=== PATIENT | female | born 1990 | race Caucasian/White ===

== ENCOUNTER 2017-04-29 17:05 | Inpatient (IN) | payer OTHER ==
[~2017-04-29] VITALS: Ht 157.5 cm; Wt 48.8 kg
--- NOTE | 2017-04-29 19:19 | RADRPT ---
PROCEDURE: XR Knee. CLINICAL INDICATION: Pain and swelling without trauma TECHNIQUE: Three views of the right knee are available for review. COMPARISON: None available FINDINGS: There is no acute fracture or dislocation. The joint spaces are maintained. A [id number]-[id number]-oyoca darcy int effusion is present. The soft tissues are unremarkable. RPTAT: ZZ IMPRESSION: Moderate to large joint effusion without a discrete fracture. The differential considerations includ e inflammatory arthropathy or infection and less likely internal derangement if there is no history of trauma or injury. A follow-up MRI is recommended for additional evaluation. .Lupe Ramirez MD, MD Date Time Electronically viewed and signed by .Lupe Ramirez MD, MD on 04/29/2017 19:19 .T/
[2017-04-29] MEDS ORDERED: LIDOCAINE 1%/EPI 30 ML INJ INJ STA (19:21)
[2017-04-29 19:28] LABS: BASOPHILS % 0.5 % (0.0-2.0); EOSINOPHILS % 0.5 % (0.0-7.0); HEMATOCRIT 44.5 % (37.0-47.0); HEMOGLOBIN 14.8 g/dl (12.0-16.0); LYMPHOCYTES # 2.3 10^3/ul (0.8-2.9); LYMPHOCYTES % 30.3 % (15.0-51.0); MEAN CORPUSCULAR HEMOGLOBIN 29.4 pg (29.0-33.0); MEAN CORPUSCULAR HGB CONC 33.3 g/dl (32.0-37.0); MEAN CORPUSCULAR VOLUME 88.5 fl (82.0-101.0); MONOCYTE # 0.7 10^3/ul (0.3-0.9); MONOCYTES % 9.3 % (0.0-11.0); NEUTROPHIL # 4.4 10^3/ul (1.6-7.5); NEUTROPHILS % 59.3 % (39.0-77.0); PLATELET COUNT 351 10^3/UL (140-415); RED BLOOD COUNT 5.03 10^6/ul (4.20-5.40); RED CELL DISTRIBUTION WIDTH 13.7 % (11.5-14.5); WHITE BLOOD COUNT 7.5 10^3/ul (4.8-10.8)
[2017-04-29 19:55] LABS: ALBUMIN 4.9 g/dl (3.3-4.9); ALBUMIN/GLOBULIN RATIO 1.19; BILIRUBIN,INDIRECT 0.5 mg/dl (0-1.1); BILIRUBIN,TOTAL 0.5 mg/dl (0.2-1.3); CALCIUM 9.7 mg/dl (8.4-10.2); CREATININE 0.61 mg/dl (0.44-1.00); POTASSIUM 3.8 mmol/L (3.5-5.1)
[2017-04-29] MEDS ORDERED: morphine 4 MG/ML VIAL IV STA (19:56)
[2017-04-29] MEDS ORDERED: ONDANSETRON 4 MG INJ IV STA (19:56)
[2017-04-29 20:23] LABS: SYN FLD CLARITY SLIGHTLY CLOUDY; SYN FLD COLOR ORANGE; SYN FLD CRYSTALS NO CRYSTALS SEEN (None seen); SYN FLD SOURCE RIGHT KNEE
[2017-04-29 20:34] LABS: SYN FLD PMN % 33.2 % (0.0-25.0); SYN FLD WBC 5675 /cmm (0-150)
[2017-04-29 20:43] LABS: SYN FLD MN % 66.8 &
[2017-04-29] MEDS ORDERED: VANCOMYCIN 1 GM (PMX) 250 ML IVPB STA (20:58)
[2017-04-29] MEDS ORDERED: CEFTRIAXONE 1 GM/50 ML (PMX) 50 ML IVPB STA (20:58)
--- NOTE | 2017-04-29 21:54 | ERD ---
ER Documentation Chief Complaint Chief Complaint r. knee pain denies trauma HPI 26 year old female presents to the emergency department complaining of moderate to severe right knee pain and swelling that is worsening in one week. Patient denies trauma, fevers. She denies taking any medications ROS All systems reviewed and are negative except as per history of present illness. Allergies Allergies: Coded Allergies: No Known Allergy (Unverified , 02/17/16) PMhx/Soc Medical and Surgical Hx: pt denies Medical Hx, pt denies Surgical Hx Hx Alcohol Use: No Hx Substance Use: No Hx Tobacco Use: No Smoking Status: Never smoker Physical Exam Vitals Vital Signs Date Time Temp Pulse Resp B/P Pulse Ox O2 Delivery O2 Flow Rate FiO2 04/29/17 17:19 98.0 102 20 138/92 97 Physical Exam Const: WDWN no acute distress Head: Atraumatic Eyes: Normal Conjunctiva ENT: Normal External Ears, Nose and Mouth. Neck: Full range of motion..~ No meningismus. Resp: Clear to auscultation bilaterally Cardio: Regular rate and rhythm, no murmurs Abd: Soft, non tender, non distended. Normal bowel sounds Skin: No petechiae or rashes Back: No midline or flank tenderness Ext: TTP right knee. Moderate swelling. restricted active ROM, full passive ROM Neur: Awake and alert Psych: Normal Mood and Affect Result Diagram: 04/29/17191904/29/171920 Results 24 hrs Laboratory Tests Test 04/29/17 19:15 04/29/17 19:20 04/29/17 19:21 Synovial Fluid Source RIGHT KNEE Synovial Fluid Color ORANGE Synovial Fluid Appearance SLIGHTLY CLOUDY Synovial Fluid Volume 22.0mL Synovial Fluid WBC 5675/cmm Synovial Fluid Polynuclear WBCs % 33.2% Synovial Fluid Mononuclear WBCs % 66.8& Synovial Fluid Crystals NO CRYSTALS SEEN White Blood Count 7.510^3/ul Red Blood Count 5.0310^6/ul Hemoglobin 14.8g/dl Hematocrit 44.5% Mean Corpuscular Volume 88.5fl Mean Corpuscular Hemoglobin 29.4pg Mean Corpuscular Hemoglobin Concent 33.3g/dl Red Cell Distribution Width 13.7% Platelet Count 26483^3/UL Mean Platelet Volume 10.0fl Neutrophils % 59.3% Lymphocytes % 30.3% Monocytes % 9.3% Eosinophils % 0.5% Basophils % 0.5% Nucleated Red Blood Cells % 0.0/100WBC Neutrophils # 4.410^3/ul Lymphocytes # 2.310^3/ul Monocytes # 0.710^3/ul Eosinophils # 0.010^3/ul Basophils # 0.010^3/ul Nucleated Red Blood Cells # 0.010^3/ul Erythrocyte Sedimentation Rate 10mm/Hr Sodium Level 140mmol/L Potassium Level 3.8mmol/L Chloride Level 102mmol/L Carbon Dioxide Level 24mmol/L Anion Gap 18 Blood Urea Nitrogen 5mg/dl Creatinine 0.61mg/dl Glucose Level 106mg/dl Calcium Level 9.7mg/dl Total Bilirubin 0.5mg/dl Direct Bilirubin 0.00mg/dl Indirect Bilirubin 0.5mg/dl Aspartate Amino Transf (AST/SGOT) 31IU/L Alanine Aminotransferase (ALT/SGPT) 28IU/L Alkaline Phosphatase 89IU/L C-Reactive Protein < 0.5mg/dl Total Protein 9.0g/dl Albumin 4.9g/dl Globulin 4.10g/dl Albumin/Globulin Ratio 1.19 Current Medications Medications (Trade) Dose Ordered Sig/Kayla Route PRN Reason Start Time Stop Time Status Last Admin Dose Admin Lidocaine/ Epinephrine (Xylocaine 1%/ Epi (Pf)) 30 ml ONCE STAT INJ 04/29/17 19:21 04/29/17 19:22 DC Morphine Sulfate (morphine) 4 mg ONCE STAT IV 04/29/17 19:56 04/29/17 19:57 DC 04/29/17 20:24 Ondansetron HCl 4 mg 4 mg ONCE STAT IV 04/29/17 19:56 04/29/17 19:57 DC 04/29/17 20:24 Vancomycin HCl 250 ml @ 125 mls/hr ONCE STAT IVPB 04/29/17 20:58 04/29/17 22:57 04/29/17 21:16 Ceftriaxone Sodium (Rocephin) 50 ml @ 100 mls/hr ONCE STAT IVPB 04/29/17 20:58 04/29/17 21:27 DC 04/29/17 21:05 Procedures/MDM 26-year-old female presents to the ED with atruamatic right knee pain and swelling, septic arthritis until proven otherwise. Patient will be admitted to med surg for further evaluation and management. I have consulted supervising physician who has consulted ortho who suggested admission. Hospitalist who accepted admission. Patient is well-appearing, afebrile and non-toxic. She is stable to be transferred. In the ED, Lab work was drawn. CBC did not show any evidence of leukocytosis or anemia. CMP did not show any evidence of renal, liver, or electrolyte abnormalities. CRP and ESR normal Joint aspiration was done, WBC 5675. Gram stain sent out XR right knee: Moderate to large joint effusion without a discrete fracture. The differential considerations include inflammatory arthropathy or infection and less likely internal derangement if there is no history of trauma or injury. A follow-up MRI is recommended for additional evaluation. Patient was given Toradol, morphine for pain. Departure Diagnosis: Primary Impression: Right knee pain Condition: OSIEL Lunsford PA-C Apr 29, 2017 21:53
[2017-04-30] MEDS ORDERED: ONDANSETRON 4 MG INJ IV PRN ×2 (00:30→04:00)
[2017-04-30] MEDS ORDERED: ACETAMINOPHEN 325 MG TAB PO PRN ×2 (00:30→04:00)
[2017-04-30 00:31] VITALS: TEMP 98
[2017-04-30 03:02] VITALS: BP 121/83; PULSE 74; RESP 17
[2017-04-30 03:10] VITALS: BP 128/83; RESP 16
[2017-04-30] MEDS ORDERED: VANCOMYCIN IV PER PHARMACY XX SCH (04:00)
[2017-04-30] MEDS ORDERED: morphine 4 MG/ML VIAL IV PRN (04:00)
[2017-04-30] MEDS: VANCOMYCIN 750 MG in DEXTROSE 5% 150 ML IVPB SCH ×2 (05:09→12:24)
[2017-04-30 07:47] VITALS: BP 111/64; RESP 16
[2017-04-30] MEDS: ENOXAPARIN 40 MG/0.4 ML SYG SC SCH (08:57)
[2017-04-30] MEDS ORDERED: CEFEPIME 1GM/50 ML (PMX) 50 ML IVPB SCH (09:00)
[2017-04-30 14:08] VITALS: BP 118/58; RESP 18
[2017-04-30] MEDS: CEFEPIME 1GM/50 ML (PMX) 50 ML IVPB SCH (15:04)
[2017-04-30 20:00] VITALS: BP 124/79; RESP 20
[2017-04-30] MEDS: VANCOMYCIN 1 GM in NS 250 ML IVPB SCH (21:10)
--- NOTE | 2017-04-30 23:51 | HP ---
Date/Time of Note Date/Time of Note DATE: 04/30/17 TIME: 23:51 Assessment/Plan VTE Prophylaxis VTE Prophylaxis Intervention: LMWH Lines/Catheters IV Catheter Type (from Nrsg): Saline Lock Assessment/Plan Assessment/Plan ASSESSMENT 26 yo female with hx of arthritis who presents to ER c/o right knee swelling and tenderness likely 2/2 inflammatory arthropathy or infection PLAN IV abx NSAIDs Need arthrocentesis. Currently awaiting Ortho eval pain mgmt HPI/ROS Admit Date/Time Admit Date/Time Apr 30, 2017 at 00:17 Hx of Present Illness This is a 26 yo female with hx of arthritis who presents to ER c/o right knee swelling and tenderness. Symptom has been progressively getting worse for last few days. Denied trauma to knee, fever/chills, N/V, CP, SOB. Right knee xray showed moderate to large joint effusion without a discrete fracture. No fever and WBC WNL. PMH/Family/Social Social History Smoking Status: Never smoker Exam/Review of Systems Vital Signs Vitals Vital Signs Date Time Temp Pulse Resp B/P Pulse Ox O2 Delivery O2 Flow Rate FiO2 04/30/17 20:00 97.7 91 20 124/79 97 04/30/17 03:02 Room Air Intake and Output 04/29/17 04/29/17 04/30/17 15:00 23:00 07:00 Intake Total 500 ml Balance 500 ml Exam Constitutional: alert, oriented Head: atraumatic, normocephalic Eyes: EOMI, PERRL Respiratory: clear to auscultation, normal air movement Cardiovascular: nl pulses, regular rate and rhythm Gastrointestinal: non-tender, soft Musculoskeletal: other (right knee swelling and tenderness) Labs Result Diagram: 04/29/17191904/29/171920 Medications Medications Current Medications Acetaminophen (Tylenol Tab) 650 mg Q6H PRN PO PAIN AND OR ELEVATED TEMP; Start 04/30/17 at 04:00 Morphine Sulfate (morphine) 4 mg Q4H PRN IV severe pain Last administered on 21:13; Admin Dose 4 MG; Start 04/30/17 at 04:00 Enoxaparin Sodium (Lovenox) 40 mg DAILY SC Last administered on 04/30/17 08: 57; Admin Dose 40 MG; Start 11/22/17 at 09:00 Ondansetron HCl 4 mg 4 mg Q6H PRN IV NAUSEA AND/OR VOMITING; Start 04/30/17 at 04:00 Cefepime HCl 50 ml @ 100 mls/hr Q8 IVPB Last administered on 04/30/17 15:04 ; Admin Dose 100 MLS/HR; Start 04/30/17 at 14:00 Vancomycin HCl (Vancocin) 250 ml @ 125 mls/hr Q8H IVPB Last administered on 21:10; Admin Dose 125 MLS/HR; Start 04/30/17 at 21:00 SURAJ ARNOLD MD Apr 30, 2017 23:51
[2017-05-01] MEDS: CEFEPIME 1GM/50 ML (PMX) 50 ML IVPB SCH ×4 (00:28→23:23)
[2017-05-01 02:06] VITALS: BP 128/88; RESP 20
[2017-05-01] MEDS: VANCOMYCIN 1 GM in NS 250 ML IVPB SCH ×3 (04:55→20:16)
[2017-05-01] MEDS: IBUPROFEN 400 MG TAB PO SCH ×5 (05:39→23:23)
[2017-05-01 06:28] LABS: BASOPHILS % 0.7 % (0.0-2.0); EOSINOPHILS # 0.2 10^3/ul (0.0-0.5); EOSINOPHILS % 2.8 % (0.0-7.0); HEMATOCRIT 38.8 % (37.0-47.0); HEMOGLOBIN 12.6 g/dl (12.0-16.0); LYMPHOCYTES # 2.3 10^3/ul (0.8-2.9); LYMPHOCYTES % 43.4 % (15.0-51.0); MEAN CORPUSCULAR HGB CONC 32.5 g/dl (32.0-37.0); MEAN CORPUSCULAR VOLUME 89.2 fl (82.0-101.0); MONOCYTE # 0.6 10^3/ul (0.3-0.9); MONOCYTES % 11.6 % (0.0-11.0); NEUTROPHIL # 2.2 10^3/ul (1.6-7.5); NEUTROPHILS % 41.5 % (39.0-77.0); PLATELET COUNT 317 10^3/UL (140-415); RED BLOOD COUNT 4.35 10^6/ul (4.20-5.40); RED CELL DISTRIBUTION WIDTH 13.7 % (11.5-14.5); WHITE BLOOD COUNT 5.4 10^3/ul (4.8-10.8)
[2017-05-01 07:05] LABS: ALBUMIN 3.6 g/dl (3.3-4.9); ALBUMIN/GLOBULIN RATIO 0.97; BILIRUBIN,INDIRECT 0.6 mg/dl (0-1.1); BILIRUBIN,TOTAL 0.6 mg/dl (0.2-1.3); CALCIUM 9.2 mg/dl (8.4-10.2); CREATININE 0.67 mg/dl (0.44-1.00); MAGNESIUM 1.8 mg/dl (1.7-2.5); POTASSIUM 3.8 mmol/L (3.5-5.1); TOTAL PROTEIN 7.3 g/dl (6.1-8.1)
[2017-05-01 07:32] VITALS: BP 113/57; RESP 16
[2017-05-01] MEDS: METHYLPREDNISOLONE 40 MG INJ IV SCH ×2 (08:07→20:16)
[2017-05-01] MEDS: ENOXAPARIN 40 MG/0.4 ML SYG SC SCH (08:48)
--- NOTE | 2017-05-01 10:32 | RADRPT ---
PROCEDURE: MRI OF THE RIGHT KNEE CLINICAL INDICATION: Right knee effusion. Knee pain for about a week without known injury. Images o btained were of the right knee. TECHNIQUE: MRI images were obtained utilizing multiple sequences in multiple planes. Images were i nterpreted on a high-resolution PACS system. COMPARISON: None available. FINDINGS: Medial compartment: There is no evidence for meniscal degeneration or tear. There is no evidence fo r chondral defect. The MCL is intact. Lateral compartment: There is no evidence for meniscal degeneration or tear. There is hyperemia wit hin the posterior lateral subcortical tibia seen on coronal PD fat saturated image #7. Findings coul d be reactive and very early erosive change. Intercondylar notch: The ACL is intact. The PCL is intact. Patellofemoral joint: No evidence for chondral defect. The patellar and quadriceps tendons are int act. Other findings: There is synovitis and a large joint effusion. In the absence of trauma, consider an inflammatory arthritis versus Lymes disease versus less likely, an indolent infection. IMPRESSION: 1. Synovitis and large joint effusion. There is also reactive osseous edema of the posterolateral t ibia. In the absence of trauma, consider an inflammatory arthritis versus Lyme disease versus the le ss likely possibility of an indolent infection. 2. No evidence for meniscus tear, chondral defect, fracture or ligament tear. RPTAT: XX .Rishi Almeida MD, Date Time Electronically viewed and signed by .Rishi Almeida MD, on 05/01/2017 10:31 .T/
--- NOTE | 2017-05-01 13:53 | PN ---
Date/Time of Note Date/Time of Note DATE: 05/01/17 TIME: 13:46 Assessment/Plan VTE Prophylaxis VTE Prophylaxis Intervention: SCD's Lines/Catheters IV [facility] Saline Lock Assessment/Plan Chief Complaint/Hosp Course Assessment and plan 1. Synovitis and large joint effusion right knee. Surgery consulted. Follow- up with recommendations. Continue with analgesics. Empirically on antibiotics for now. Disposition plan: Continue antibiotics. Surgical evaluation pending. Discussed plan of care with Dr. Fraser Problems: Subjective 24 Hr Interval Summary Free Text/Dictation Still reports having pain on right knee. Exam/Review of Systems Vital Signs Vitals Vital Signs Date Time Temp Pulse Resp B/P Pulse Ox O2 Delivery O2 Flow Rate FiO2 05/01/17 07:32 97.8 66 16 113/57 99 04/30/17 03:02 Room Air Intake and Output 04/30/17 04/30/17 05/01/17 15:00 23:00 07:00 Intake Total 350 ml 1210 ml 1000 ml Balance 350 ml 1210 ml 1000 ml Exam Constitutional: alert, oriented Psych: no complaints Head: normocephalic Eyes: nl conjunctiva ENMT: nl external ears & nose Neck: non-tender, supple Respiratory: clear to auscultation, normal air movement Cardiovascular: regular rate and rhythm Gastrointestinal: soft Musculoskeletal: swelling (right knee with pain on palpation) Neurological: CUSTOMER LOYALTY REPRESENTATIVE II-XII intact, nl mental status, nl speech Skin: nl turgor Results Result Diagram: 05/01/17 0516 05/01/17 0516 Results 24 hrs Laboratory Tests Test 04/30/17 20:09 05/01/17 05:16 Vancomycin Level Trough 8.0 L White Blood Count 5.4 # Red Blood Count 4.35 Hemoglobin 12.6 Hematocrit 38.8 Mean Corpuscular Volume 89.2 Mean Corpuscular Hemoglobin 29.0 Mean Corpuscular Hemoglobin Concent 32.5 Red Cell Distribution Width 13.7 Platelet Count 317 Mean Platelet Volume 10.0 Neutrophils % 41.5 Lymphocytes % 43.4 Monocytes % 11.6 H Eosinophils % 2.8 Basophils % 0.7 Nucleated Red Blood Cells % 0.0 Neutrophils # 2.2 Lymphocytes # 2.3 Monocytes # 0.6 Eosinophils # 0.2 Basophils # 0.0 Nucleated Red Blood Cells # 0.0 Sodium Level 142 Potassium Level 3.8 Chloride Level 104 Carbon Dioxide Level 28 Anion Gap 14 Blood Urea Nitrogen 7 Creatinine 0.67 Glucose Level 91 Calcium Level 9.2 Magnesium Level 1.8 Total Bilirubin 0.6 Direct Bilirubin 0.00 Indirect Bilirubin 0.6 Aspartate Amino Transf (AST/SGOT) 21 Alanine Aminotransferase (ALT/SGPT) 24 Alkaline Phosphatase 59 Total Protein 7.3 # Albumin 3.6 # Globulin 3.70 H Albumin/Globulin Ratio 0.97 Medications Medications Current Medications Acetaminophen (Tylenol Tab) 650 mg Q6H PRN PO PAIN AND OR ELEVATED TEMP; Start 04/30/17 at 04:00 Morphine Sulfate (morphine) 4 mg Q4H PRN IV severe pain Last administered on 21:13; Admin Dose 4 MG; Start 04/30/17 at 04:00 Enoxaparin Sodium (Lovenox) 40 mg DAILY SC Last administered on 05/01/17 08: 48; Admin Dose 40 MG; Start 04/30/17 at 09:00 Ondansetron HCl 4 mg 4 mg Q6H PRN IV NAUSEA AND/OR VOMITING; Start 04/30/17 at 04:00 Cefepime HCl 50 ml @ 100 mls/hr Q8 IVPB Last administered on 05/01/17 07:09 ; Admin Dose 100 MLS/HR; Start 04/30/17 at 14:00 Vancomycin HCl (Vancocin) 250 ml @ 125 mls/hr Q8H IVPB Last administered on 04:55; Admin Dose 125 MLS/HR; Start 04/30/17 at 21:00 Methylprednisolone Sodium Succinate (Solu-Medrol) 40 mg Q12 IV Last administered on 05/01/17 08:07; Admin Dose 40 MG; Start 05/01/17 at 09:00 Ibuprofen (Motrin) 400 mg Q6 PO Last administered on 05/01/17 05:39; Admin Dose 400 MG; Start 05/01/17 at 06:00 Miscellaneous Information (*Rx Drug Level Order Reminder*) VANCOMYCIN TROUGH AT 0400 ONCE ONCE XX ; Start 05/02/17 at 04:00; Stop 05/02/17 at 04:01 EDIE SOTOMAYOR May 01, 2017 13:53
[2017-05-01 15:00] VITALS: BP 126/87; RESP 16
[2017-05-01] MEDS ORDERED: BETAMET NA PHOS/AC(6 MG/ML) 5ML INJ INJ ONE (16:00)
[2017-05-01] MEDS ORDERED: BUPIVACAINE 0.5%/EPI (SDV) 10 ML INJ INJ ONE (16:00)
[2017-05-01] MEDS ORDERED: BUPIVACAINE 0.5%/EPI 1:200,000 50 ML (MDV) INJ ONE (16:30)
[2017-05-01] MEDS ORDERED: BUPIVACAINE 0.5%/EPI (SDV) 30 ML INJ INJ ONE (16:30)
[2017-05-01 19:48] VITALS: BP 120/78; RESP 18
--- NOTE | 2017-05-02 01:24 | CONS ---
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 According to the patient, she developed this effusion or swelling involving her right knee about a week ago, without any memorable trauma or unusual injuries. She did not have any fever or chills. She did not have any infection involving the rest of her body. She is not known to have any unusual medical problems such as gout or pseudogout. PHYSICAL EXAMINATION: My examination revealed a 26-year-old female who is not obviously heavy. There was a rather extensive effusion involving the right knee; however, there were no signs of acute pyogenic process such as redness, increased warmth, or acute tenderness. The range of motion of the right hip was mildly limited because of the obvious effusion. There was no local tenderness around the right knee. There were no gross instabilities in the right knee. DIAGNOSTIC DATA: X-rays of the right knee were essentially within normal limit except for the presence of the effusion. There were no signs of chondrocalcinosis. MRI scan was showing a presence of effusion with signs of synovitis; however, there were no signs of any trauma. The WBC count was around 5000, which is not high enough to the septic. There was no leukocytosis and the sedimentation rate was essentially within normal limits. TREATMENT: Aspiration of the right knee was done in the Emergency Room and there were no unusual crystals, and no organism was identified on Gram stain. DIAGNOSTIC IMPRESSION: Painful effusion, right knee, without any findings of the diagnostic studies suggestive of septic arthritis or crystalline arthritis. RECOMMENDATIONS: For management, trial of steroid injection into the right knee. If she has persistent symptoms, consult feeder/folder. Dictated By: In Michelle Meléndez MD /milo/ynes /Document#: [id number]
[2017-05-02 02:17] VITALS: BP 111/69; RESP 18
[2017-05-02] MEDS: VANCOMYCIN 1 GM in NS 250 ML IVPB SCH (05:22)
[2017-05-02] MEDS: IBUPROFEN 400 MG TAB PO SCH ×2 (05:54→13:24)
[2017-05-02 08:14] VITALS: BP 109/67; RESP 18
[2017-05-02] MEDS: METHYLPREDNISOLONE 40 MG INJ IV SCH (09:05)
[2017-05-02] MEDS: CEFEPIME 1GM/50 ML (PMX) 50 ML IVPB SCH (09:07)
[2017-05-02] MEDS: ENOXAPARIN 40 MG/0.4 ML SYG SC SCH (09:23)
[2017-05-02] MEDS ORDERED: MELO-210 PO (09:40)
[2017-05-02] MEDS ORDERED: MED4DP PO (09:40)
--- NOTE | 2017-05-02 09:45 | PDOCDIS ---
Discharge Instructions DIAGNOSIS Discharge Diagnosis Synovitis and large joint effusion right knee CONDITION Patient Condition: Stable HOME CARE INSTRUCTIONS: Special Diet: regular FOLLOW UP/APPOINTMENTS Follow-up Plan 1. Follow up with your primary care provider in one week 2. Follow up with Dr. Lilia Meléndez in 1-2 weeks if pain and swelling persist on your right knee EDIE SOTOMAYOR May 02, 2017 09:45
[2017-05-02 14:00] VITALS: BP 119/80; RESP 18
--- NOTE | 2017-05-06 17:37 | DS ---
Date/Time of Note Date/Time of Note DATE: 05/06/17 TIME: 17:37 Discharge Summary Admission/Discharge Info Admit Date/Time Apr 30, 2017 at 00:17 Discharge Date/Time May 02, 2017 at 14:15 Discharge Diagnosis Synovitis and large joint effusion right knee Patient Condition: Stable Hospital Course This Is a 26-year-old female with history of arthritis who came to [facility] due to right knee swelling and tenderness. She reports that this has been progressively getting worse. She denies any fevers or chills associated with it. She had a right knee x-ray did show joint effusion. She also had an MRI of the right knee that showed her to have synovitis large joint effusion. Patient was seen by orthopedic surgeon. After review the findings were not suggestive of septic arthritis and we did discontinue her antibiotics. She did have steroid injection into the right knee and she did have good response from this. During the course states did improve. She did report less pain in the knee and the swelling had significantly decreased. She was advised to follow-up with orthopedic surgeon should she have worsening right knee pain. The plan of care was discussed with the patient and patient did verbalize her understanding. On the day of discharge patient was in stable condition Discussed plan of care with Dr. Fraser [place] Meds Active Scripts Methylprednisolone* (Medrol* DOSE PACK) 4 Mg/Dose-Pack Tab.ds.pk, 4 MG PO . DIRECTED, #1 PACKET Prov:EDIE SOTOMAYOR 05/02/17 Meloxicam* (Mobic*) 15 Mg Tablet, 15 MG PO DAILY, #14 TAB Prov:EDIE SOTOMAYOR 05/02/17 Follow-up Plan 1. Follow up with your primary care provider in one week 2. Follow up with Dr. Lilia Meléndez in 1-2 weeks if pain and swelling persist on your right knee Primary Care Provider Care Physician No Primary Time spent on discharge: > 30 minutes EDIE SOTOMAYOR May 06, 2017 17:37
== END 2017-05-02 14:15 | disposition home or self-care (01) | DRG 566 ==
LOC: FTE 17:05 → MS2 04-30 00:17
PROVIDERS: ADMIT Internal Medicine; ATTEND Internal Medicine
PROC: 0S9C3ZX Drainage of Right Knee Joint, Percutaneous Approach, Diagnostic (ICD-10-PCS; principal; 2017-04-29)
DX: M25.461 Effusion, right knee (principal); M65.9 Synovitis and tenosynovitis, unspecified
CPT/HCPCS: 73562; 73721; 80053; 80202; 83735; 84100; 85025; 85651; 86140; 87070; 89060; J0692; J0696; J0702; J1650; J2270; J2405; J2920; J3370

== ENCOUNTER 2017-05-09 14:38 | Outpatient (CLI) | payer OTHER ==
[~2017-05-09] VITALS: Ht 157.5 cm; Wt 50.0 kg
[~2017-05-09 14:38] MED LIST: MED4DP PO; MELO-210 PO
[2017-05-09 15:11] VITALS: BP 127/81; PULSE 97; RESP 16; Ht 157.5 cm; Wt 50.0 kg
--- NOTE | 2017-05-09 15:24 | PN ---
Date/Time of Note Date/Time of Note DATE: 05/09/17 TIME: 15:21 Outpatient Progress Note Chief Complaint Right knee pain/ HPI Right knee pain/acute onset, few days, associated with swelling, and pain, slightly relieved with Motrin, no history of any injury, not provoked by any injury, no history of any rheumatoid arthritis, No fever chill, no skin rash or lesion, Review of Systems Const: No Fever, no chills, no Wt. loss, no Fatigue, normal appetite, no diaphoresis. Eyes: No pain, no discharge, no redness, no visual change, no foreign body. ENT: No pain, no bleeding, no congestion, no sore throat, no dysphagia, no discharge or rhinitis. Lymph: No adenopathy, no tender nodes, no lymphedema. Resp: No SOB, no cough, no sputum, no wheezing, no chest pain. CV: No chest pain, no palpitaions, no KIMBALL, no PND, no edema. GI: Normal appetite, no pain, no nausea, no vomiting, no diarrhea, no blood, no constipation. : No frequency, no urgency, no dysuria, no hematuria, no flank pain, no discharge, no bleeding. Musc: No back pain, no neck pain, right knee pain, slight swelling, no restricted ROM. Skin: No rash, no skin lesions, no erythema, no laceration, no bruising, no pruritus. Neuro: No PETERSON, no dizziness, no syncope, no seizure, no focal-weakness. Endo: No polyuria, no polydypsia, no dry-skin, no temp-intolerance. Psych: No hallucinations, no depression, no anxiety, no suicidal ideation. Ext: No edema, no pain, no ulcer, no weakness. Physical Exam Vital Signs Date Time Temp Pulse Resp B/P Pulse Ox O2 Delivery O2 Flow Rate FiO2 05/09/17 15:11 98.2 97 16 127/81 97 Room Air General Appearance: A 26 year-old female who appears well-developed, well- nourished, in no acute distress. HEENT: Head normocephalic, atraumatic. Pupils equal, round, reactive to light and accommodate. Sclerae are no jaundice. Nasal turbinates pink without erythema or nasal discharge. Mucous membranes pink and moist without lesions. Oropharynx clear without any exudate or discharge. NECK: Supple. Trachea midline, No thyromegaly, No cervical lymphadenopathy, No mass, No carotid bruits, No JVD, Carotid pulses 2+ bilaterally. PULMONARY: Clear to auscultaion bilaterally, No retractions, Chest expansion symmetric bilaterally, no rales, no ronchi, no dulness on percussion. CARDIAC: Normal SI and S2, Regular rate and rythm, no murmur, gallop, or rub. GASTROINTESTINAL: Abdomen is soft, non-tender, Non Rigid, No distention, Positive bowel sounds x4 quadrants, Liver normal. SKIN: Warm, dry, no rash, no bruise, no echmosis. EXTREMITIES: Bilateral lower extremities normal, right knee minimal swelling, minimal discomfort, no redness, no discharge, no edema, no phlabitus, pulse palpable, no contracture. MUSCULOSKELETAL: Spine Normal, Non-tender, Normal range of motion, No swelling, no deformity, no clubbing, or cyanosis, the patient has no edema to bilateral lower extremities, dorsalis pedis pulses palpable bilaterally. NEUROLOGIC: The patient is awake, alert, oriented, responding to yes/no questions appropriately, moving all extremities, cranial nerve intact, normal strenght, normal power, normal coordination, normal gait. Allergies Coded Allergies: No Known Allergy (Unverified , 02/17/16) PMH None Social Hx No smoking no drinking, Family Hx Noncontributory Assessment/Plan Impression Right knee pain/right knee swelling, Plan Patient education done, patient's pain minimal at present, Patient has her medication, patient education done about her condition and prevention, Discussed with the patient about comfortable shoes and avoid injury to the leg and the knee, If any swelling or deformity or fever to let us know, Medications Home Meds Active Scripts Meloxicam* (Mobic*) 15 Mg Tablet, 15 MG PO DAILY, #14 TAB Prov:EDIE SOTOMAYOR 05/02/17 Discontinued Scripts Methylprednisolone* (Medrol* DOSE PACK) 4 Mg/Dose-Pack Tab.ds.pk, 4 MG PO . DIRECTED, #1 PACKET Prov:EDIE SOTOMAYOR 05/02/17 SIN PARISI MD May 09, 2017 15:24
== END 2017-05-09 15:03 | disposition home or self-care (01) ==
LOC: DCC 14:38
PROVIDERS: ATTEND Internal Medicine
DX: M25.561 Pain in right knee (principal); R22.41 Localized swelling, mass and lump, right lower limb
CPT/HCPCS: G0463

== ENCOUNTER 2017-05-23 00:31 | Emergency (ER) | payer OTHER ==
[~2017-05-23] VITALS: Ht 162.6 cm; Wt 49.4 kg
[~2017-05-23 00:31] MED LIST changes: -MED4DP PO
[2017-05-23 00:39] VITALS: Ht 162.6 cm; Wt 49.4 kg
[2017-05-23] MEDS ORDERED: LIDOCAINE 1% (MDV) 20 ML INJ SC ONE (02:30)
--- NOTE | 2017-05-23 03:29 | ERD ---
ER Documentation Chief Complaint Chief Complaint rectal bleeding w/ pain today HPI 26 year old healthy female presenting with complaints of pain in her buttock region for 2 days. She noticed some "leakage"" today and went to the bathroom and wiped, seeing some blood on the toilet paper. Denies any associated symptoms such as fever, rectal pain, nausea, vomiting, or abdominal pain. ROS All systems reviewed and are negative except as per history of present illness. Medications Home Meds Active Scripts Meloxicam* (Mobic*) 15 Mg Tablet, 15 MG PO DAILY, #14 TAB Prov:EDIE SOTOMAYOR 05/02/17 Discontinued Scripts Sulfamethoxazole/Trimethoprim* (Bactrim Ds* Tablet) 1 Each Tablet, 1 TAB PO BID , #14 TAB Prov:SALINAS QUINTANILLA MD 05/23/17 Hydrocodone/Acetaminophen ([place] 5-325 Tablet) 1 Each Tablet, 1 TAB PO Q6H Y for PAIN, #7 TAB Prov:SALINAS QUINTANILLA MD 05/23/17 Allergies Allergies: Coded Allergies: No Known Allergy (Unverified , 02/17/16) PMhx/Soc Medical and Surgical Hx: pt denies Medical Hx, pt denies Surgical Hx History of Surgery: No Anesthesia Reaction: No Hx Neurological Disorder: No Hx Respiratory Disorders: No Hx Cardiac Disorders: No Hx Psychiatric Problems: No Hx Miscellaneous Medical Probl: No Hx Alcohol Use: Yes (SOCIALLY) Hx Substance Use: No Hx Tobacco Use: Yes (7 YEARS AGO) Smoking Status: Former smoker FmHx Family History: No diabetes Physical Exam Vitals Vital Signs Date Time Temp Pulse Resp B/P Pulse Ox O2 Delivery O2 Flow Rate FiO2 05/23/17 00:39 98.3 99 20 128/82 99 Physical Exam Const: well appearing, no distress Head: Atraumatic Eyes: Normal Conjunctiva ENT: Normal External Ears, Nose and Mouth. Neck: Full range of motion..~ No meningismus. Resp: Clear to auscultation bilaterally Cardio: Regular rate and rhythm, no murmurs Abd: Soft, non tender, non distended. Normal bowel sounds Skin: No petechiae or rashes Back: No midline or flank tenderness. upper central buttock overlying the sacral area there is a 4x2 cm area or induration with some fluctuance, erythema and drainage of bloody fluid. Ext: No cyanosis, or edema Neur: Awake and alert Psych: Normal Mood and Affect Results 24 hrs Current Medications Medications (Trade) Dose Ordered Sig/Kayla Route PRN Reason Start Time Stop Time Status Last Admin Dose Admin Lidocaine (Xylocaine 1% (Mdv) 20 ml) 20 ml ONCE ONCE SC 05/23/17 02:30 05/23/17 02:31 DC Procedures/MDM Patient's exam is consistent with likely pilonidal abscess. She was verbally consented for drainage. Abscess Incision and Drainage with irrigation by me: Location: sacral area Anesthesia: Local 1% Lidocaine Technique: Irrigated. Disrupted loculations w/ instrumentation. expressed only minimal amount of bloody purulent fluid Packing: None Complications: Neurovascularly intact post procedure 48 hour wound check. Patient's skin symptoms have stabilized while they have been evaluated in the department and are appropriate for outpatient care and work up. Exam and w/u not consistent w/ sepsis, deep space infection, or foreign body. Patient will be started on 7 day course of Bactrim. Return precautions discussed. Departure Diagnosis: Primary Impression: Cyst, pilonidal, with abscess Condition: Stable SALINAS QUINTANILLA MD May 23, 2017 03:29
[2017-05-23] MEDS ORDERED: HYDR-906 PO (03:32)
[2017-05-23] MEDS ORDERED: SULF1TAB31 PO (03:32)
== END 2017-05-23 03:44 | disposition home or self-care (01) ==
LOC: E/R 00:31
DX: L05.01 Pilonidal cyst with abscess (principal); Z87.891 Personal history of nicotine dependence
CPT/HCPCS: 10080; Z7502; Z7610

== ENCOUNTER 2017-05-23 14:14 | Outpatient (CLI) | payer OTHER ==
[~2017-05-23] VITALS: Ht 162.6 cm; Wt 49.1 kg
[~2017-05-23 14:14] MED LIST changes: +HYDR-906 PO; +SULF1TAB31 PO
[2017-05-23 14:43] VITALS: Ht 162.6 cm; Wt 49.1 kg
[2017-05-23 14:44] VITALS: BP 130/75; PULSE 82; RESP 16
--- NOTE | 2017-05-23 15:18 | PN ---
Date/Time of Note Date/Time of Note DATE: 05/23/17 TIME: 15:11 Outpatient Progress Note Chief Complaint Knee pain/pilonidal cyst and cellulitis HPI Knee pain/patient was seen couple of weeks ago slightly more pain on left knee, no swelling, no deformity, no fall or injury, for right knee pain, right knee pain slightly better, Patient had work nails down, patient works at [employer], and the patient kneels down on hard floor, Pilonidal cyst and cellulitis/patient has a pilonidal cyst and cellulitis, patient was seen in emergency room today, patient states that patient was given antibiotic and pain medication, and drainage of the cyst was done, No fever chill, patient has history of pilonidal cyst, Review of Systems Const: No Fever, no chills, no Wt. loss, no Fatigue, normal appetite, no diaphoresis. Eyes: No pain, no discharge, no redness, no visual change, no foreign body. ENT: No pain, no bleeding, no congestion, no sore throat, no dysphagia, no discharge or rhinitis. Lymph: No adenopathy, no tender nodes, no lymphedema. Resp: No SOB, no cough, no sputum, no wheezing, no chest pain. CV: No chest pain, no palpitaions, no KIMBALL, no PND, no edema. GI: Normal appetite, no pain, no nausea, no vomiting, no diarrhea, no blood, no constipation. : No frequency, no urgency, no dysuria, no hematuria, no flank pain, no discharge, no bleeding. Musc: No back pain, no neck pain, bilateral knee pain, left side slightly more discomfort full than the right side, even after [place], no restricted ROM. Skin: No rash, no skin lesions, no erythema, no laceration, no bruising, no pruritus. Neuro: No PETERSON, no dizziness, no syncope, no seizure, no focal-weakness. Endo: No polyuria, no polydypsia, no dry-skin, no temp-intolerance. Psych: No hallucinations, no depression, no anxiety, no suicidal ideation. Ext: No edema, bilateral knee pain, slightly more on the left side than right side, no ulcer, no weakness. Physical Exam Vital Signs Date Time Temp Pulse Resp B/P Pulse Ox O2 Delivery O2 Flow Rate FiO2 05/23/17 14:44 98.0 82 16 130/75 100 Room Air General Appearance: A 26 year-old female who appears well-developed, well- nourished, in no acute distress. HEENT: Head normocephalic, atraumatic. Pupils equal, round, reactive to light and accommodate. Sclerae are no jaundice. Nasal turbinates pink without erythema or nasal discharge. Mucous membranes pink and moist without lesions. Oropharynx clear without any exudate or discharge. NECK: Supple. Trachea midline, No thyromegaly, No cervical lymphadenopathy, No mass, No carotid bruits, No JVD, Carotid pulses 2+ bilaterally. PULMONARY: Clear to auscultaion bilaterally, No retractions, Chest expansion symmetric bilaterally, no rales, no ronchi, no dulness on percussion. CARDIAC: Normal SI and S2, Regular rate and rythm, no murmur, gallop, or rub. GASTROINTESTINAL: Abdomen is soft, non-tender, Non Rigid, No distention, Positive bowel sounds x4 quadrants, Liver normal. SKIN: Warm, dry, no rash, no bruise, no echmosis. EXTREMITIES: Bilateral lower extremities no edema, no phlabitus, pulse palpable , no contracture. Bilateral knee pain, left side slightly more than right side , no deformity, no bruises, no bleeding, no effusion, MUSCULOSKELETAL: Spine Normal, Non-tender, Normal range of motion, No swelling, no deformity, no clubbing, or cyanosis, the patient has no edema to bilateral lower extremities, dorsalis pedis pulses palpable bilaterally. NEUROLOGIC: The patient is awake, alert, oriented, responding to yes/no questions appropriately, moving all extremities, cranial nerve intact, normal strenght, normal power, normal coordination, normal gait. Allergies Coded Allergies: No Known Allergy (Unverified , 02/17/16) PMH Knee pain/pilonidal cyst/cellulitis Social Hx No change Family Hx No change Assessment/Plan Impression Knee pain/pilonidal cyst and cellulitis Plan Patient has pilonidal cyst, patient was started on Bactrim DS and [place], will continue that, patient advised to use doughnut for relieving the pressure Patient education done to avoid the pressure on both knees, especially and avoid kneeling,, Patient is a pain medication, will not add any more medication at present, patient to follow with the primary care physician in couple of weeks, Patient also explained if any bleeding or discharge from pilonidal cyst to contact primary care physician, Medications Home Meds Active Scripts Meloxicam* (Mobic*) 15 Mg Tablet, 15 MG PO DAILY, #14 TAB Prov:EDIE SOTOMAYOR 05/02/17 Discontinued Scripts Sulfamethoxazole/Trimethoprim* (Bactrim Ds* Tablet) 1 Each Tablet, 1 TAB PO BID , #14 TAB Prov:SALINAS QUINTANILLA MD 05/23/17 Hydrocodone/Acetaminophen ([place] 5-325 Tablet) 1 Each Tablet, 1 TAB PO Q6H Y for PAIN, #7 TAB Prov:SALINAS QUINTNAILLA MD 05/23/17 SIN PARISI MD May 23, 2017 15:18
== END 2017-05-23 15:35 | disposition home or self-care (01) ==
LOC: DCC 14:14
PROVIDERS: ATTEND Internal Medicine
DX: M25.562 Pain in left knee (principal); L05.91 Pilonidal cyst without abscess; L03.116 Cellulitis of left lower limb
CPT/HCPCS: G0463